=== PATIENT | female | born 2000 | race Native Hawaiian/Other Pacific Islander ===

== ENCOUNTER 2023-01-02 01:35 | Emergency (ER) | payer OTHER ==
[~2023-01-02] VITALS: Ht 167.6 cm; Wt 125.2 kg
[2023-01-02 01:35] VITALS: TEMP 98.7
[2023-01-02 02:05] VITALS: BP 176/92
== END 2023-01-02 02:05 | disposition home or self-care (01) ==
LOC: ED 01:35
DX: O90.0 Disruption of cesarean delivery wound (principal)
CPT/HCPCS: 99282

== ENCOUNTER 2023-12-06 00:58 | Emergency (ER) | payer OTHER ==
[~2023-12-06] VITALS: Ht 167.6 cm; Wt 113.4 kg
[2023-12-06 01:05] VITALS: TEMP 98.5
[2023-12-06 02:07] LABS: PLATELET COUNT 269 K/uL (152-353)
[2023-12-06 02:18] LABS: POTASSIUM 3.7 mmol/L (3.6-5.2)
[2023-12-06 06:37] VITALS: BP 110/71
== END 2023-12-06 06:37 | disposition home or self-care (01) ==
LOC: ED 00:58
PROVIDERS: Family Medicine
DX: R11.2 Nausea with vomiting, unspecified (principal); R19.7 Diarrhea, unspecified; R10.9 Unspecified abdominal pain; K52.89 Other specified noninfective gastroenteritis and colitis
CPT/HCPCS: 36415; 80053; 81002; 81025; 85027; 87015; 87045; 87324; 87328; 87329; 87449; 87899; 96361; 96365; 96366; 96372; 96375; 99284; J0744; J1885; J2405; J2550; J2765; J3490; Q9963